=== PATIENT | female | born 1950 | race Caucasian/White ===

== ENCOUNTER → 2017-09-14 | Outpatient (CLI) | payer OTHER ==
[~2017-09-14] MED LIST: IBUP-1773 PO; MULT-974 PO
--- NOTE | 2017-09-14 11:24 | Diagnostic Imaging Report ---
Indication: Shortness of air. Time of exam 11:04 AM No free air is identified. Bowel gas pattern is nonobstructive. No pathologic calcifications are seen. Impression: No acute abnormality is detected. Dictated by: Dictated on workstation # [id number]
--- NOTE | 2017-09-14 11:26 | Diagnostic Imaging Report ---
Indication: Shortness of air. Time of exam 11:02 AM The heart size is normal. There is a right chest wall port with tip overlying the SVC. Lungs are clear. Pulmonary vascularity is normal. No infiltrate, effusion or pneumothorax is seen. Impression: No acute cardiopulmonary process is detected. Dictated by: Dictated on workstation # [id number]
== END ==
LOC: CARD 10:30
PROVIDERS: ATTEND Nurse Practitioner Family
DX: R06.02 Shortness of breath (principal); R10.30 Lower abdominal pain, unspecified; N39.0 Urinary tract infection, site not specified
CPT/HCPCS: 71046; 74019

== ENCOUNTER → 2017-10-06 | Outpatient (CLI) | payer OTHER ==
[~2017-10-06] MED LIST changes: +CATHETER FLUSH 10 ML SYR IV PRN; +REGADENOSON 0.4 MG/5 ML SYR (LEXISCAN) IV ONE
[2017-10-06 09:40] VITALS: BP 200/107
--- NOTE | 2017-10-06 18:09 | STRESS TEST ---
DATE OF SERVICE: 10/06/2017 RESTING AND POST REGADENOSON TECHNETIUM-99M TETROFOSMIN SPECT CT IMAGING ORDERING PHYSICIAN: ALCIDES HEIN MD, SAMMY, FACP, FACC. PRIMARY CARE PHYSICIAN: Dr. Khanna. CLINICAL DIAGNOSES: Chest discomfort, shortness of breath, hypertension, obesity. Baseline images were carried out after injection of 10.17 mCi of technetium-99m tetrofosmin. This was followed by 0.4 mg regadenoson and 30 mCi of technetium-99m tetrofosmin for stress imaging. The electrocardiogram showed sinus rhythm at baseline. There was subtle, nonspecific ST abnormality. The electrocardiogram did not change significantly with the regadenoson infusion. The patient tolerated the procedure well. Review of images at rest and following stress does not indicate any significant perfusion defects consistent with any significant myocardial ischemia or infarction. Gated images show normal global left ventricular systolic function and normal regional wall motion. Left ventricular ejection fraction is calculated to be 75%. Left ventricular end diastolic volume is 52 mL. TID is absent (1.03). CONCLUSIONS: 1. No evidence of any significant myocardial ischemia or infarction. 2. Normal regional wall motion. 3. Normal global left ventricular systolic function with a calculated ejection fraction of 75%. Job ID: [id number] DocumentID: [id number] Dictated Date: 10/06/2017 14:59:36 Director Facilities Maintenance Date: 10/06/2017 18:08:24 Dictated By: ALCIDES HEIN MD, SAMMY, FACP, FACC,
== END ==
LOC: CARD 08:31
PROVIDERS: ATTEND Internal Medicine Cardiovascular Disease
DX: I10 Essential (primary) hypertension (principal); R06.02 Shortness of breath; R07.89 Other chest pain; E66.8 Other obesity; R01.1 Cardiac murmur, unspecified
CPT/HCPCS: 78452; 93017; 93923

== ENCOUNTER → 2017-10-19 | Outpatient (CLI) | payer OTHER ==
[~2017-10-19] MED LIST changes: -CATHETER FLUSH 10 ML SYR IV PRN; -REGADENOSON 0.4 MG/5 ML SYR (LEXISCAN) IV ONE
== END ==
LOC: CARD 08:07
PROVIDERS: ATTEND Internal Medicine Cardiovascular Disease
DX: R06.02 Shortness of breath (principal); R07.89 Other chest pain; I10 Essential (primary) hypertension; E66.8 Other obesity; R01.1 Cardiac murmur, unspecified; I08.3 Combined rheumatic disorders of mitral, aortic and tricuspid valves
CPT/HCPCS: 93306

== ENCOUNTER → 2018-11-08 | Outpatient (CLI) | payer MEDICARE, OTHER ==
[~2018-11-08] MED LIST changes: +CATHETER FLUSH 10 ML SYR IV PRN; +FUROSEMIDE 40 MG/4 ML INJ (LASIX) IVP ONE; +FUROSEMIDE 40 MG/4 ML INJ (LASIX) ONE
--- NOTE | 2018-11-08 14:03 | Diagnostic Imaging Report ---
INDICATION: Left ureteral obstruction. TECHNIQUE: Patient was administered 5.4 mCi technetium-99m MAG3 and imaging over the abdomen was performed. Patient was also given 40 mg of Lasix intravenously at approximately 50 minutes into the study. COMPARISON: No current imaging is available for comparison. Comparison is made with the prior CT abdomen and pelvis study from 04/27/2014. FINDINGS: Dynamic blood flow images demonstrate activity within the abdominal vasculature and with prompt uptake and perfusion to the right kidney. No perfusion to the left kidney is identified. Delayed images demonstrate normal tubular uptake throughout the right kidney with excretion into the right renal collecting system and right ureter. There is activity within the bladder. No delayed activity within the left kidney or left ureter is seen. Right kidney does show a normal downward renogram curve. Overall differential renal function is 100% for the right and 0% for the left. IMPRESSION: 1. Normal-appearing right kidney. 2. No activity is identified in the left kidney. No perfusion or evidence of tubular uptake or excretion from the left kidney is identified. This is a new finding since prior CT from 04/27/2014 which did show normal cortical enhancement with normal contrast within the renal collecting system and ureter. Dictated by: Dictated on workstation # [id number]
== END ==
LOC: CARD 08:37
PROVIDERS: ATTEND Urology
DX: N13.5 Crossing vessel and stricture of ureter without hydronephrosis (principal)
CPT/HCPCS: 78708

== ENCOUNTER → 2018-11-18 | Outpatient (CLI) | payer MEDICARE, OTHER ==
[~2018-11-18] MED LIST changes: -CATHETER FLUSH 10 ML SYR IV PRN; -FUROSEMIDE 40 MG/4 ML INJ (LASIX) IVP ONE; -FUROSEMIDE 40 MG/4 ML INJ (LASIX) ONE
== END | disposition home or self-care (01) ==
LOC: PREOP 05:29
PROVIDERS: ATTEND Urology
DX: Z01.818 Encounter for other preprocedural examination (principal)

== ENCOUNTER 2018-11-21 08:17 | Emergency (ER) | payer MEDICARE, OTHER ==
[~2018-11-21] VITALS: Ht 165.1 cm; Wt 88.0 kg
--- NOTE | 2018-11-21 08:44 | ED Abdominal Pain ---
General Stated Complaint: LF SIDE PAIN Source of Information: Patient, Spouse Exam Limitations: No Limitations History of Present Illness Date Seen by Provider: Nov 21, 2018 Time Seen by Provider: 08:29 Initial Comments Patient presents to the ER by private conveyance with chief complaint of her left flank having some pain and pressure she says that it is reminiscent of a kidney infection she's had years ago. Most recently she was being evaluated for having poor functioning left kidney and Dr. Domínguez, urology was going to take her put a possible splint in after doing some ureteroscopy tomorrow. About a month or so ago she had a colonoscopy by Dr. Henderson and they had a difficult time and then she up with a leak in her colon requiring 3-4 days in the hospital on antibiotics. She finished up her 10 days oral antibiotics about 2-3 weeks ago. She's having no fevers or chills. She did have some nausea after dinner last night but her did not have any problem with eating the same food. She's had her gallbladder out no other abdominal surgeries. She does take one half tablet of metoprolol twice a day and noticed it. Allergies and Home Medications Allergies Coded Allergies: Sulfa (Sulfonamide Antibiotics) (Verified Allergy, Unknown, 11/19/18) Home Medications Ibuprofen 600 Mg Tablet, 600 MG PO Q6H Prescribed by: NEDRA MCDONALD on 05/09/14 1012 Multivitamin 1 Each Tablet, 1 EACH PO DAILY, (Reported) Patient Home Medication List Home Medication List Reviewed: Yes Review of Systems Review of Systems Constitutional: No chills, No diaphoresis EENTM: No Blurred Vision, No Double Vision Respiratory: Denies Cough, Denies Shortness of Air Cardiovascular: Denies Chest Pain, Denies Edema Gastrointestinal: See HPI; Denies Constipated, Denies Diarrhea; Nausea, Vomiting (times one yesterday) Genitourinary: Burning (mild); Denies Discharge, Denies Drainage Musculoskeletal: No back pain, No joint pain Past [place]-Wybxrs-Jslkyp Hx Patient Social History Alcohol Use: Denies Use Recreational Drug Use: No Smoking Status: Never a Smoker Recent Foreign Travel: No Contact w/Someone Who Travel: No Physical Exam Vital Signs Vital Signs - First Documented 11/21/18 08:43 Temp 98.2 Pulse 77 Resp 20 B/P (MAP) 167/83 (111) Pulse Ox 97 Capillary Refill : Height/Weight/BMI Height: 5'6.00" Weight: 187lbs. oz. 84.662095jp; BMI Method: General Appearance: WD/WN, no apparent distress HEENT: PERRL/EOMI, pharynx normal Neck: full range of motion, normal inspection Respiratory: no respiratory distress, no accessory muscle use Cardiovascular: normal peripheral pulses, regular rate, rhythm Peripheral Pulses: 2+ Radial Pulses (R), 2+ Radial Pulses (L) Gastrointestinal: normal bowel sounds, non tender, soft, no organomegaly Extremities: normal range of motion, normal inspection, no pedal edema, normal capillary refill Neurologic/Psychiatric: alert, normal mood/affect, oriented x 3 Skin: normal color, warm/dry Progress/Results/Core Measures Results/Orders Lab Results Laboratory Tests Test 11/21/18 08:41 11/21/18 09:04 Range/Units White Blood Count 21.9 H 4.3-11.0 10^3/uL Red Blood Count 5.06 4.35-5.85 10^6/uL Hemoglobin 14.6 11.5-16.0 G/DL Hematocrit 44 35-52 % Mean Corpuscular Volume 87 80-99 FL Mean Corpuscular Hemoglobin 29 25-34 PG Mean Corpuscular Hemoglobin Concent 33 32-36 G/DL Red Cell Distribution Width 14.8 H 10.0-14.5 % Platelet Count 243 130-400 10^3/uL Mean Platelet Volume 9.7 7.4-10.4 FL Neutrophils (%) (Auto) 82 H 42-75 % Lymphocytes (%) (Auto) 6 L 12-44 % Monocytes (%) (Auto) 12 0-12 % Eosinophils (%) (Auto) 0 0-10 % Basophils (%) (Auto) 0 0-10 % Neutrophils # (Auto) 17.8 H 1.8-7.8 X 10^3 Lymphocytes # (Auto) 1.4 1.0-4.0 X 10^3 Monocytes # (Auto) 2.6 H 0.0-1.0 X 10^3 Eosinophils # (Auto) 0.0 0.0-0.3 10^3/uL Basophils # (Auto) 0.0 0.0-0.1 10^3/uL Neutrophils % (Manual) 88 % Lymphocytes % (Manual) 5 % Monocytes % (Manual) 5 % Band Neutrophils 2 % Blood Morphology Comment NORMAL Sodium Level 136 135-145 MMOL/L Potassium Level 4.5 3.6-5.0 MMOL/L Chloride Level 103 98-107 MMOL/L Carbon Dioxide Level 18 L 21-32 MMOL/L Anion Gap 15 H 5-14 MMOL/L Blood Urea Nitrogen 23 H 7-18 MG/DL Creatinine 1.09 0.60-1.30 MG/DL Estimat Glomerular Filtration Rate 50 BUN/Creatinine Ratio 21 Glucose Level 117 H 70-105 MG/DL Calcium Level 9.8 8.5-10.1 MG/DL Corrected Calcium 9.7 8.5-10.1 MG/DL Total Bilirubin 1.1 H 0.1-1.0 MG/DL Aspartate Amino Transf (AST/SGOT) 31 5-34 U/L Alanine Aminotransferase (ALT/SGPT) 26 0-55 U/L Alkaline Phosphatase 102 40-136 U/L C-Reactive Protein High Sensitivity 4.21 H 0.00-0.50 MG/DL Total Protein 7.2 6.4-8.2 GM/DL Albumin 4.1 3.2-4.5 GM/DL Urine Color YELLOW Urine Clarity VERY CLOUDY H Urine pH 5 5-9 Urine Specific [place] 1.020 1.016-1.022 Urine Protein 4+ NEGATIVE Urine Glucose (UA) NEGATIVE NEGATIVE Urine Ketones NEGATIVE NEGATIVE Urine Nitrite POSITIVE H NEGATIVE Urine Bilirubin NEGATIVE NEGATIVE Urine Urobilinogen NORMAL NORMAL MG/DL Urine Leukocyte Esterase 3+ H NEGATIVE Urine RBC (Auto) 5+ H NEGATIVE Urine RBC TNTC H /HPF Urine WBC TNTC H /HPF Urine Squamous Epithelial Cells NONE /HPF Urine Crystals NONE /LPF Urine Bacteria LARGE H /HPF Urine Casts NONE /LPF Urine Mucus NEGATIVE /LPF Urine Culture Indicated YES My Orders Orders - BENNETT SOLORIO Cbc With Automated Diff (11/21/18 08:38) Comprehensive Metabolic Panel (11/21/18 08:38) Hs C Reactive Protein (11/21/18 08:38) Ua Culture If Indicated (11/21/18 08:38) Manual Differential (11/21/18 08:41) Urine Culture (11/21/18 09:04) Ceftriaxone For Iv Use (Rocephin For I (11/21/18 10:00) Vital Signs/I&O 11/21/18 08:43 Temp 98.2 Pulse 77 Resp 20 B/P (MAP) 167/83 (111) Pulse Ox 97 Progress Progress Note #1: Time: 08:44 Progress Note Surgically nonacute abdomen with left costovertebral angle tenderness no history of kidney stones. Also likely she has a urinary tract infection. We'll check some urine and labs. Curious to see if her kidney function has declined from previous baseline of 0.8 from 2014. Progress Note #2: Time: 10:00 Progress Note Vitals are still aseptic. We'll give some Rocephin put her out on Keflex and follow-up with primary care. We have discussed the case with Dr. Domínguez, urology and he recommended she should keep her planned procedure tomorrow as it may help her symptoms. He recommends Levaquin 750 daily. Departure Impression Primary Impression: Urinary tract infection Qualified Codes: N10 - Acute pyelonephritis Disposition: 01 HOME, SELF-CARE Condition: Stable Departure-Patient Inst. Decision time for Depature: 10:04 Referrals: SAMSON COELLO APRN (PCP) Primary Care Physician NIKO DOMÍNGUEZ MD Patient Instructions: Kidney Infection (DC) Add. Discharge Instructions: Start taking the Levaquin this evening and then once a day to completion. Plan on tomorrow keeping your scheduled appointment with urology to do the procedure. Use Tylenol 1000 mg as well as heating pads for your flank discomfort. Drink copious amounts of water to help flush your system. Scripts Levofloxacin (Levaquin) 750 Mg Tablet 750 MG PO DAILY for 7 Days, #7 TAB 0 Refills Prov: BENNETT SOLORIO 11/21/18 BENNETT SOLORIO Nov 21, 2018 08:44
[2018-11-21 08:48] LABS: BASOPHILS % (AUTO) 0 % (0-10); EOSINOPHILS % (AUTO) 0 % (0-10); HEMATOCRIT 44 % (35-52); HEMOGLOBIN 14.6 G/DL (11.5-16.0); LYMPHOCYTES # (AUTO) 1.4 X 10^3 (1.0-4.0); LYMPHOCYTES % (AUTO) 6 % (12-44); MEAN CORPUSCULAR HEMOGLOBIN 29 PG (25-34); MEAN CORPUSCULAR HGB CONC 33 G/DL (32-36); MEAN CORPUSCULAR VOLUME 87 FL (80-99); MEAN PLATELET VOLUME 9.7 FL (7.4-10.4); MONOCYTES # (AUTO) 2.6 X 10^3 (0.0-1.0); MONOCYTES % (AUTO) 12 % (0-12); NEUTROPHILS # (AUTO) 17.8 X 10^3 (1.8-7.8); NEUTROPHILS % (AUTO) 82 % (42-75); PLATELET COUNT 243 10^3/uL (130-400); RED CELL DISTRIBUTION WIDTH 14.8 % (10.0-14.5); WHITE BLOOD COUNT 21.9 10^3/uL (4.3-11.0)
[2018-11-21] MEDS ORDERED: METO50TA15 (08:48)
--- NOTE | 2018-11-21 09:01 | NUR ---
PT UP TO RR AT THIS TIME.
[2018-11-21 09:07] LABS: ALBUMIN 4.1 GM/DL (3.2-4.5); BILIRUBIN,TOTAL 1.1 MG/DL (0.1-1.0); CALCIUM 9.8 MG/DL (8.5-10.1); CREATININE SERUM 1.09 MG/DL (0.60-1.30); POTASSIUM 4.5 MMOL/L (3.6-5.0); TOTAL PROTEIN 7.2 GM/DL (6.4-8.2)
[2018-11-21 09:11] LABS: BILIRUBIN,URINE NEGATIVE (NEGATIVE); CLARITY,URINE VERY CLOUDY; COLOR,URINE YELLOW; GLUCOSE, URINE (UA) NEGATIVE (NEGATIVE); KETONES,URINE NEGATIVE (NEGATIVE); LEUKOCYTE ESTERASE ,URINE 3+ (NEGATIVE); NITRITE,URINE POSITIVE (NEGATIVE); PH,URINE 5 (5-9); PROTEIN,URINE 4+ (NEGATIVE); UROBILINOGEN,URINE NORMAL (NORMAL)
[2018-11-21 09:13] LABS: BAND NEUTROPHILS 2 %; LYMPHOCYTES % (MANUAL) 5 %; MONOCYTES % (MANUAL) 5 %; NEUTROPHILS % (MANUAL) 88 %; RBC MORPH NORMAL
[2018-11-21 09:20] LABS: BACTERIA,URINE LARGE /HPF; RBC,URINE TNTC /HPF; WBC,URINE TNTC /HPF
[2018-11-21] MEDS ORDERED: cefTRIAXone FOR IV USE 1,000 MG in WATER (STERILE) FOR INJECTION 10 ML IV ONE (10:00)
[2018-11-21] MEDS ORDERED: LEVO750T9 PO (10:08)
[2018-11-21 10:18] VITALS: BP 145/79
[2018-11-22] MEDS ORDERED: METO50TA15 PO (07:44)
== END 2018-11-21 10:18 | disposition home or self-care (01) ==
LOC: EDUNIT# 08:17 → ER 08:22
DX: N39.0 Urinary tract infection, site not specified (principal); Z88.2 Allergy status to sulfonamides
CPT/HCPCS: 36415; 80053; 81000; 85007; 85027; 86141; 87077; 87088; 87186

== ENCOUNTER 2018-11-22 06:46 | Day surgery (SDC) | payer MEDICARE, OTHER ==
[2018-11-22] VITALS (12 sets, daily range): BP systolic 89–141; BP diastolic 41–82
[~2018-11-22] VITALS: Ht 165.1 cm; Wt 88.0 kg
[~2018-11-22 06:46] MED LIST changes: +LEVO750T9 PO; +METO50TA15
[2018-11-22] MEDS ORDERED: cefTRIAXone FOR IV USE 1,000 MG in WATER (STERILE) FOR INJECTION 10 ML IV ONE ×2 (07:00→09:00)
[2018-11-22] MEDS ORDERED: SEVOFLURANE (ULTANE) 15 ML INHAL SOLN ONE (07:10)
[2018-11-22] MEDS ORDERED: LIDOCAINE PF 2% 5 ML (XYLOCAINE) VIAL ONE (07:10)
[2018-11-22] MEDS ORDERED: ONDANSETRON 4 MG/2 ML (SDV) Z0FRAN ONE (07:10)
[2018-11-22] MEDS ORDERED: proPOfol 200 MG/20 ML (DIPRIVAN) VIAL IV ONE (07:10)
[2018-11-22] MEDS ORDERED: MIDAZOLAM 2 MG/2 ML (VERSED) VIAL ONE (07:10)
[2018-11-22] MEDS ORDERED: DEXAMETHASONE 10 MG/ML (DECADRON) 1 ML VIAL ONE (07:10)
[2018-11-22] MEDS ORDERED: fentaNYL INJECTION 100 MCG/2 ML AMP ONE (07:10)
[2018-11-22] MEDS ORDERED: ROCURONIUM 10 MG/ML 5 ML SYRINGE IV ONE (07:18)
[2018-11-22] MEDS: LACTATED RINGERS 1,000 ML IV PRN ×2 (07:20→08:59)
[2018-11-22] MEDS ORDERED: METO50TA15 PO (07:44)
--- NOTE | 2018-11-22 08:18 | Progress Note-Pre Operative ---
Pre-Operative Progress Note H&P Reviewed The H&P was reviewed, patient examined and no changes noted. Date Seen by Provider: Nov 22, 2018 Time Seen by Provider: 08:17 Date H&P Reviewed: Nov 22, 2018 Time H&P Reviewed: 08:17 Pre-Operative Diagnosis: LT URETERAL OBSTRUCTION NIKO DOMÍNGUEZ MD Nov 22, 2018 08:18
[2018-11-22] MEDS ORDERED: GENTAMICIN 40 MG/ML 2 ML INJ SDV ONE (08:34)
[2018-11-22] MEDS ORDERED: LACTATED RINGERS 1,000 ML IV ONE (08:52)
[2018-11-22] MEDS ORDERED: IOPAMIDOL 61% 30 ML (ISOVUE 300) VIAL IV ONE (09:05)
--- NOTE | 2018-11-22 09:05 | Progress Note-Post Operative ---
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
--- NOTE | 2018-11-22 09:07 | Discharge Inst-Urology ---
Discharge Inst-Urology Patient Instructions/Follow Up Plan Please make appointment to been seen in office in 3 weeks Continue antibiotic given in ED yesterday as directed Increase oral fluids for 48 hours and then as needed. Diet and Activity as tolerated. If questions or concerns contact your physician Or seek help at emergency department. NIKO DOMÍNGUEZ MD Nov 22, 2018 09:07
[2018-11-22] MEDS ORDERED: morphine INJ 10 MG/ML 1ML (SYR OR VIAL) IVP ONE (09:15)
[2018-11-22] MEDS ORDERED: ONDANSETRON 4 MG/2 ML (SDV) Z0FRAN IVP PRN (09:15)
[2018-11-22] MEDS ORDERED: MEPERIDINE (DEMEROL) INJ 50 MG/ML IVP ONE (09:15)
--- NOTE | 2018-11-22 14:33 | Anesthesia-General Post-Op ---
General Patient Condition Mental Status/LOC: Same as Preop Cardiovascular: Satisfactory Nausea/Vomiting: Absent Respiratory: Satisfactory Pain: Controlled Complications: Absent Post Op Complications Complications None Follow Up Care/Instructions Patient Instructions None needed. Anesthesia/Patient Condition Patient Condition Patient is doing well, no complaints, stable vital signs, no apparent adverse anesthesia problems. No complications reported per nursing. ZIGGY DILLARD CRNA Nov 22, 2018 14:33
--- NOTE | 2018-11-22 15:32 | OPERATIVE REPORT ---
DATE OF SERVICE: 11/22/2018 PREOPERATIVE DIAGNOSES: Left ureteral obstruction and colonic abscess. 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 OPERATION PERFORMED: Cystoscopy, left retrograde urogram and attempted left ureteral stent. SURGEON: Javier Domínguez MD ANESTHESIA: General. COMPLICATIONS: None. DESCRIPTION OF PROCEDURE: Under satisfactory general anesthesia, the patient in lithotomy position, genitalia were prepped and draped in the usual sterile fashion. Cystoscope was introduced into the bladder. There was some generalized mild cystitis. There was one spot in the posterior wall left side, what looked like some small mucus coming through. Ureteric orifices were normal in shape, size, configuration, but there was no efflux on the left side. I went ahead and grasped that a small mucus of the bladder wall and I could see a small hole beyond that, but after that I could not visualize that hole at all to plan any kind of retrograde study through it. I went ahead and passed a 5-[place] ureteral catheter in the left ureteral orifice and injected contrast. There was dilatation of the ureter, pelvis, caliceal system all the way down to the last distal part of the ureter, which shows narrowing and there was of the contrast after removing the catheter and I could not see much efflux. There is no bladder tumor or stone visualized. Right ureteral orifice was normal. There was clear efflux. Bladder was evacuated and cystoscope was removed. The patient tolerated the procedure and anesthesia well, and was sent to recovery room in stable condition. She received a gram of Rocephin and gentamicin 80 mg IV. PLAN: Continue p.o. antibiotic given from the ER yesterday. We did recommend later on to perform a CT cystogram to rule out fistula. I do not think the infections are coming from the kidney. I think it is more from the possibility of a vesicocolonic fistula. The patient did admit to pass some air into the urine. Job ID: [id number] DocumentID: [id number] Dictated Date: 11/22/2018 09:03:22 Supply Officer Date: 11/22/2018 15:31:49 Dictated By: JAVIER DOMÍNGUEZ MD
== END 2018-11-22 10:55 | disposition home or self-care (01) ==
LOC: SDC 06:46
PROVIDERS: ATTEND Urology
DX: N13.5 Crossing vessel and stricture of ureter without hydronephrosis (principal); K63.0 Abscess of intestine; N30.90 Cystitis, unspecified without hematuria; N28.9 Disorder of kidney and ureter, unspecified; I10 Essential (primary) hypertension; Z11.2 Encounter for screening for other bacterial diseases; Z87.440 Personal history of urinary (tract) infections; Z85.41 Personal history of malignant neoplasm of cervix uteri; Z88.2 Allergy status to sulfonamides; Z92.21 Personal history of antineoplastic chemotherapy; Z79.899 Other long term (current) drug therapy
CPT/HCPCS: 87081

== ENCOUNTER → 2020-06-28 | Outpatient (CLI) | payer MEDICARE, OTHER ==
[~2020-06-28] MED LIST changes: +METO50TA15 PO
== END ==
LOC: CARD 09:00
PROVIDERS: ATTEND Internal Medicine Cardiovascular Disease
DX: I51.7 Cardiomegaly (principal); R01.2 Other cardiac sounds; R01.1 Cardiac murmur, unspecified
CPT/HCPCS: 93306

== ENCOUNTER → 2021-08-09 | Outpatient (CLI) | payer MEDICARE | LOC: CARD 11:00 | PROVIDERS: ATTEND Internal Medicine Cardiovascular Disease | DX: I07.1 Rheumatic tricuspid insufficiency (principal) | CPT/HCPCS: 93306 ==

== ENCOUNTER → 2023-05-18 | Outpatient (CLI) | payer MEDICARE | LOC: CARD 10:15 | PROVIDERS: ATTEND Internal Medicine Cardiovascular Disease | DX: R01.1 Cardiac murmur, unspecified (principal) ==